=== PATIENT | male | born 1970 | race Caucasian/White ===

== ENCOUNTER 2019-08-04 23:16 | Inpatient (IN) | payer MEDICAID ==
[~2019-08-04 23:16] MED LIST: OXYC5CAP19 PO; PHEN100C23 PO; PROP10TA10 PO
[2019-08-05 03:00] VITALS: BP 128/87
[2019-08-05] MEDS ORDERED: HALOPERIDOL 5 MG TABLET PO PRN (03:00)
[2019-08-05] MEDS ORDERED: PNEUMOCOCCAL VACCINE POLYVALENT 0.5 ML VIAL [PPSV23] IM ONE (04:15)
[2019-08-05] MEDS: LORazepam 2 MG TABLET PO PRN ×2 (04:21→16:11)
[2019-08-05] MEDS ORDERED: DOCUSATE SODIUM 100 MG CAPSULE PO PRN ×2 (07:30→09:15)
[2019-08-05 08:10] LABS: ALANINE AMINOTRANSFERASE 43 U/L (12-78); ALBUMIN 3.2 g/dL (3.4-5.0); ALKALINE PHOSPHATASE 58 U/L (46-116); ANION GAP 9 mmol/L (8-16); ASPARTATE AMINOTRANSFERASE 24 U/L (15-37); BILIRUBIN,TOTAL 0.7 mg/dL (0.1-1.0); CALCIUM, TOTAL 8.9 mg/dL (8.8-10.5); CARBON DIOXIDE 29 mmol/L (22-29); CHLORIDE 104 mmol/L (98-107); CREATININE 0.58 mg/dL (0.60-1.30); GLOMERULAR FILTR. RATE CALC > 60 mL/min (>60); GLUCOSE,RANDOM 94 mg/dL (70-110); POTASSIUM 3.2 mmol/L (3.5-5.1); SODIUM SERUM 142 mmol/L (136-145); TOTAL PROTEIN, SERUM 6.6 g/dL (6.4-8.2); UREA NITROGEN, BLOOD 7 mg/dL (7-18)
[2019-08-05] MEDS: PANTOPRAZOLE SODIUM 40 MG DR TABLET PO SCH (09:03)
[2019-08-05] MEDS: METOPROLOL TARTRATE 25 MG TABLET PO SCH ×2 (09:03→20:09)
[2019-08-05] MEDS: CEPHALEXIN MONOHYDRATE 500 MG CAPSULE PO SCH ×3 (09:03→17:19)
[2019-08-05] MEDS: THIAMINE HCL 100 MG TABLET PO SCH (09:03)
[2019-08-05 09:12] VITALS: BP 125/72
[2019-08-05] MEDS ORDERED: ALBUTEROL SULFATE HFA 90 MCG/PUFF 8 GM INHALER IH PRN (09:15)
[2019-08-05] MEDS ORDERED: CloNIDine HCL 0.1 MG TABLET PO PRN (09:15)
[2019-08-05] MEDS ORDERED: LOPERAMIDE HCL 2 MG CAPSULE PO PRN (09:15)
[2019-08-05] MEDS ORDERED: NICOTINE 14 MG/24 HOUR PATCH TD PRN (09:15)
[2019-08-05] MEDS ORDERED: MAGNESIUM HYDROXIDE SUSPENSION 30 ML UDCUP PO PRN (09:15)
[2019-08-05] MEDS ORDERED: GuaiFENesin/D-METHORPHAN [SUGAR-FREE] 200-20MG/10 ML SYRUP UDCUP PO PRN (09:15)
[2019-08-05] MEDS ORDERED: IBUPROFEN 400 MG TABLET PO PRN (09:15)
[2019-08-05] MEDS ORDERED: MAG HYDROX/AL HYDROX/SIMETH ES 30 ML SUSPENSION UDCUP PO PRN (09:15)
[2019-08-05] MEDS ORDERED: ONDANSETRON HCL 4 MG TABLET PO PRN (09:15)
[2019-08-05] MEDS ORDERED: PETROLATUM,WHITE 28 GM JELLY TP PRN (09:15)
[2019-08-05 09:16] VITALS: BP 125/72
[2019-08-05 16:05] VITALS: BP 111/68
[2019-08-05] MEDS ORDERED: POTASSIUM CHLORIDE 20 MEQ ER TABLET PO ONE (16:15)
[2019-08-05] MEDS: PHENYTOIN SODIUM 100 MG ER CAPSULE PO SCH (17:27)
[2019-08-05] MEDS: OLANZapine 7.5 MG TABLET PO SCH (20:09)
[2019-08-05] MEDS: BENZTROPINE MESYLATE 1 MG TABLET PO SCH (20:09)
[2019-08-06 00:28] VITALS: BP 121/76
[2019-08-06] MEDS: LORazepam 2 MG TABLET PO PRN ×2 (04:05→17:25)
[2019-08-06 07:55] LABS: FREE T4 (FREE THYROXINE) 1.22 ng/dL (0.76-1.46); PHENYTOIN (DILANTIN) 3.3 mcg/mL (10.0-20.0); POTASSIUM 4.2 mmol/L (3.5-5.1)
[2019-08-06] MEDS: PHENYTOIN SODIUM 100 MG ER CAPSULE PO SCH ×2 (08:30→16:27)
[2019-08-06] MEDS: PANTOPRAZOLE SODIUM 40 MG DR TABLET PO SCH (08:30)
[2019-08-06] MEDS: METOPROLOL TARTRATE 25 MG TABLET PO SCH ×2 (08:30→20:10)
[2019-08-06] MEDS: CEPHALEXIN MONOHYDRATE 500 MG CAPSULE PO SCH ×3 (08:30→16:24)
[2019-08-06] MEDS: THIAMINE HCL 100 MG TABLET PO SCH (08:30)
[2019-08-06 09:27] VITALS: BP 128/77
[2019-08-06] MEDS ORDERED: PETROLATUM,WHITE 28 GM JELLY TP PRN (10:45)
[2019-08-06] MEDS ORDERED: GuaiFENesin/D-METHORPHAN [SUGAR-FREE] 200-20MG/10 ML SYRUP UDCUP PO PRN (10:45)
[2019-08-06] MEDS ORDERED: CloNIDine HCL 0.1 MG TABLET PO PRN (10:45)
[2019-08-06] MEDS ORDERED: ONDANSETRON HCL 4 MG TABLET PO PRN (10:45)
[2019-08-06] MEDS ORDERED: DOCUSATE SODIUM 100 MG CAPSULE PO PRN (10:45)
[2019-08-06] MEDS ORDERED: IBUPROFEN 400 MG TABLET PO PRN (10:45)
[2019-08-06] MEDS ORDERED: NICOTINE 14 MG/24 HOUR PATCH TD PRN (10:45)
[2019-08-06] MEDS ORDERED: ALBUTEROL SULFATE HFA 90 MCG/PUFF 8 GM INHALER IH PRN (10:45)
[2019-08-06] MEDS ORDERED: MAG HYDROX/AL HYDROX/SIMETH ES 30 ML SUSPENSION UDCUP PO PRN (10:45)
[2019-08-06] MEDS ORDERED: LOPERAMIDE HCL 2 MG CAPSULE PO PRN (10:45)
[2019-08-06] MEDS ORDERED: MAGNESIUM HYDROXIDE SUSPENSION 30 ML UDCUP PO PRN (10:45)
[2019-08-06 16:17] VITALS: BP 125/76
[2019-08-06 20:10] VITALS: BP 127/89
[2019-08-06] MEDS: BENZTROPINE MESYLATE 1 MG TABLET PO SCH (20:10)
[2019-08-06] MEDS: OLANZapine 7.5 MG TABLET PO SCH (20:11)
[2019-08-06] MEDS: ZOLPIDEM TARTRATE 10 MG TABLET PO PRN (20:57)
[2019-08-07 05:25] VITALS: BP 122/78
[2019-08-07 08:08] VITALS: BP 122/63
[2019-08-07] MEDS: METOPROLOL TARTRATE 25 MG TABLET PO SCH ×2 (08:24→20:09)
[2019-08-07] MEDS: PANTOPRAZOLE SODIUM 40 MG DR TABLET PO SCH (08:24)
[2019-08-07] MEDS: CEPHALEXIN MONOHYDRATE 500 MG CAPSULE PO SCH ×3 (08:24→16:16)
[2019-08-07] MEDS: THIAMINE HCL 100 MG TABLET PO SCH (08:24)
[2019-08-07] MEDS: PHENYTOIN SODIUM 100 MG ER CAPSULE PO SCH ×2 (08:24→16:16)
[2019-08-07] MEDS: LORazepam 2 MG TABLET PO PRN ×2 (11:03→17:18)
[2019-08-07 16:00] VITALS: BP_SYST 101; BP_SYST 96; BP_DIAS 64; BP_DIAS 74
[2019-08-07 20:05] VITALS: BP 126/90
[2019-08-07] MEDS: BENZTROPINE MESYLATE 1 MG TABLET PO SCH (20:09)
[2019-08-07] MEDS: OLANZapine 7.5 MG TABLET PO SCH (20:09)
[2019-08-07] MEDS: ZOLPIDEM TARTRATE 10 MG TABLET PO PRN (21:14)
[2019-08-08 00:49] VITALS: BP 141/79
[2019-08-08] MEDS: PHENYTOIN SODIUM 100 MG ER CAPSULE PO SCH ×2 (08:11→23:22)
[2019-08-08] MEDS: PANTOPRAZOLE SODIUM 40 MG DR TABLET PO SCH (08:12)
[2019-08-08] MEDS: METOPROLOL TARTRATE 25 MG TABLET PO SCH ×2 (08:12→23:22)
[2019-08-08] MEDS: THIAMINE HCL 100 MG TABLET PO SCH (08:12)
[2019-08-08] MEDS: CEPHALEXIN MONOHYDRATE 500 MG CAPSULE PO SCH ×3 (08:13→23:23)
[2019-08-08 08:23] VITALS: BP 121/74
[2019-08-08] MEDS: LORazepam 2 MG TABLET PO PRN (12:30)
[2019-08-08] MEDS ORDERED: PANT40TA25 PO (17:03)
[2019-08-08] MEDS ORDERED: METO25 PO (17:03)
[2019-08-08] MEDS ORDERED: ZOLP-281 PO (17:03)
[2019-08-08] MEDS ORDERED: BENZ1TAB10 PO (17:03)
[2019-08-08] MEDS ORDERED: OLAN7.5T2 PO (17:03)
[2019-08-08] MEDS ORDERED: CEPH-582 PO (17:03)
[2019-08-08] MEDS ORDERED: PHENY100 PO (17:03)
[2019-08-08] MEDS ORDERED: THIA100T67 PO (17:03)
[2019-08-08] MEDS ORDERED: LORA-1001 PO (17:03)
[2019-08-08] MEDS: OLANZapine 7.5 MG TABLET PO SCH (21:00)
[2019-08-08 22:02] VITALS: BP 124/70
[2019-08-08] MEDS: BENZTROPINE MESYLATE 1 MG TABLET PO SCH (23:23)
[2019-08-09 00:54] VITALS: BP 103/68
[2019-08-09] MEDS: METOPROLOL TARTRATE 25 MG TABLET PO SCH ×2 (08:25→21:15)
[2019-08-09] MEDS: THIAMINE HCL 100 MG TABLET PO SCH (08:25)
[2019-08-09] MEDS: CEPHALEXIN MONOHYDRATE 500 MG CAPSULE PO SCH ×3 (08:25→17:06)
[2019-08-09] MEDS: PANTOPRAZOLE SODIUM 40 MG DR TABLET PO SCH (08:25)
[2019-08-09] MEDS: PHENYTOIN SODIUM 100 MG ER CAPSULE PO SCH ×2 (08:25→17:06)
[2019-08-09 08:44] VITALS: BP 124/79
[2019-08-09] MEDS ORDERED: SULFAMETHOX/TRIMETH DS 800-160 MG/TABLET PO SCH ×2 (09:00)
[2019-08-09 16:19] VITALS: BP 100/82
[2019-08-09] MEDS: SULFAMETHOX/TRIMETH DS 800-160 MG/TABLET PO SCH (17:06)
[2019-08-09] MEDS: LORazepam 2 MG TABLET PO PRN (17:18)
[2019-08-09] MEDS: POVIDONE-IODINE 30 GM OINTMENT TP SCH (17:33)
[2019-08-09] MEDS: BENZTROPINE MESYLATE 1 MG TABLET PO SCH (21:15)
[2019-08-09] MEDS: OLANZapine 7.5 MG TABLET PO SCH (21:15)
[2019-08-10 02:49] VITALS: BP 117/85
[2019-08-10 08:07] VITALS: BP 118/70
[2019-08-10] MEDS: THIAMINE HCL 100 MG TABLET PO SCH (08:29)
[2019-08-10] MEDS: CEPHALEXIN MONOHYDRATE 500 MG CAPSULE PO SCH ×2 (08:29→16:30)
[2019-08-10] MEDS: METOPROLOL TARTRATE 25 MG TABLET PO SCH ×2 (08:29→21:42)
[2019-08-10] MEDS: PANTOPRAZOLE SODIUM 40 MG DR TABLET PO SCH (08:29)
[2019-08-10] MEDS: SULFAMETHOX/TRIMETH DS 800-160 MG/TABLET PO SCH ×2 (08:29→16:29)
[2019-08-10] MEDS: POVIDONE-IODINE 30 GM OINTMENT TP SCH (08:30)
[2019-08-10] MEDS: PHENYTOIN SODIUM 100 MG ER CAPSULE PO SCH ×2 (08:30→16:29)
[2019-08-10] MEDS: LORazepam 2 MG TABLET PO PRN (15:56)
[2019-08-10 16:06] VITALS: BP 113/86
[2019-08-10] MEDS: BENZTROPINE MESYLATE 1 MG TABLET PO SCH (21:41)
[2019-08-10] MEDS: OLANZapine 7.5 MG TABLET PO SCH (21:42)
[2019-08-10] MEDS: ZOLPIDEM TARTRATE 10 MG TABLET PO PRN (21:59)
[2019-08-11] MEDS: CEPHALEXIN MONOHYDRATE 500 MG CAPSULE PO SCH ×4 (00:40→23:32)
[2019-08-11 06:32] VITALS: BP 110/76
[2019-08-11 08:28] VITALS: BP 117/74
[2019-08-11] MEDS: THIAMINE HCL 100 MG TABLET PO SCH (08:49)
[2019-08-11] MEDS: PANTOPRAZOLE SODIUM 40 MG DR TABLET PO SCH (08:49)
[2019-08-11] MEDS: METOPROLOL TARTRATE 25 MG TABLET PO SCH ×2 (08:49→20:14)
[2019-08-11] MEDS: SULFAMETHOX/TRIMETH DS 800-160 MG/TABLET PO SCH ×2 (08:49→17:04)
[2019-08-11] MEDS: PHENYTOIN SODIUM 100 MG ER CAPSULE PO SCH ×2 (08:49→17:05)
[2019-08-11] MEDS ORDERED: POVIDONE-IODINE 30 GM OINTMENT TP SCH (09:00)
[2019-08-11] MEDS: POVIDONE-IODINE 30 GM OINTMENT TP SCH (10:25)
[2019-08-11] MEDS: LORazepam 2 MG TABLET PO PRN ×2 (12:00→17:17)
[2019-08-11 16:06] VITALS: BP 108/65
[2019-08-11] MEDS: BENZTROPINE MESYLATE 1 MG TABLET PO SCH (20:14)
[2019-08-11] MEDS: OLANZapine 7.5 MG TABLET PO SCH (20:14)
[2019-08-11] MEDS: ZOLPIDEM TARTRATE 10 MG TABLET PO PRN (22:06)
[2019-08-12 01:13] VITALS: BP 119/91
[2019-08-12] MEDS ORDERED: SULF1TAB42 PO (07:56)
[2019-08-12 08:13] VITALS: BP 133/64
[2019-08-12] MEDS: PANTOPRAZOLE SODIUM 40 MG DR TABLET PO SCH (08:38)
[2019-08-12] MEDS: PHENYTOIN SODIUM 100 MG ER CAPSULE PO SCH (08:38)
[2019-08-12] MEDS: SULFAMETHOX/TRIMETH DS 800-160 MG/TABLET PO SCH (08:38)
[2019-08-12] MEDS: CEPHALEXIN MONOHYDRATE 500 MG CAPSULE PO SCH (08:38)
[2019-08-12] MEDS: METOPROLOL TARTRATE 25 MG TABLET PO SCH (08:38)
[2019-08-12] MEDS: THIAMINE HCL 100 MG TABLET PO SCH (08:38)
[2019-08-12] MEDS: POVIDONE-IODINE 30 GM OINTMENT TP SCH (08:39)
[2019-08-12] MEDS ORDERED: OLAN7.5T9 PO (09:21)
[2019-08-12] MEDS ORDERED: BENZ1TAB10 PO (09:21)
== END 2019-08-12 13:15 | disposition home or self-care (01) | DRG 750 ==
LOC: B2S 08-05 02:40
PROVIDERS: ADMIT Psychiatry & Neurology Child & Adolescent Psychiatry; ATTEND Psychiatry & Neurology Child & Adolescent Psychiatry
DX: F25.0 Schizoaffective disorder, bipolar type (principal); G40.909 Epilepsy, unspecified, not intractable, without status epilepticus; E87.6 Hypokalemia; I10 Essential (primary) hypertension; F15.10 Other stimulant abuse, uncomplicated; Z59.0 Homelessness; Z91.5 Personal history of self-harm; Z88.5 Allergy status to narcotic agent; Z88.8 Allergy status to other drugs, medicaments and biological substances; F11.10 Opioid abuse, uncomplicated
CPT/HCPCS: 84132; 84439; 87081

== ENCOUNTER 2019-08-08 16:13 | Emergency (ER) | payer MEDICAID, OTHER ==
[~2019-08-08] VITALS: Ht 180.3 cm; Wt 81.8 kg
[2019-08-08] MEDS ORDERED: LIDOCAINE/PF 1% 2 ML VIAL IM ONE (17:00)
[2019-08-08] MEDS ORDERED: KETOROLAC TROMETHAMINE 30 MG/ML VIAL IM ONE (17:00)
[2019-08-08] MEDS ORDERED: LIDOCAINE 1%/EPI 1:200,000/PF 10 ML VIAL INJ ONE (17:00)
[2019-08-08] MEDS ORDERED: SULFAMETHOX/TRIMETH DS 800-160 MG/TABLET PO ONE (17:00)
[2019-08-08] MEDS ORDERED: CefTRIAXone SODIUM 1 GM/VIAL IM ONE (17:00)
[2019-08-08] MEDS ORDERED: BENZ1TAB10 PO (17:03)
[2019-08-08] MEDS ORDERED: OLAN7.5T2 PO (17:03)
[2019-08-08] MEDS ORDERED: METO25 PO (17:03)
[2019-08-08] MEDS ORDERED: ZOLP-281 PO (17:03)
[2019-08-08] MEDS ORDERED: PHENY100 PO (17:03)
[2019-08-08] MEDS ORDERED: THIA100T67 PO (17:03)
[2019-08-08] MEDS ORDERED: PANT40TA25 PO (17:03)
[2019-08-08] MEDS ORDERED: CEPH-582 PO (17:03)
[2019-08-08] MEDS ORDERED: LORA-1001 PO (17:03)
[2019-08-08] MEDS ORDERED: IBUPROFEN 400 MG TABLET PO ONE (18:30)
[2019-08-08 18:54] VITALS: BP 129/81
== END 2019-08-08 20:10 | disposition home or self-care (01) ==
LOC: EMS 16:13
DX: L02.414 Cutaneous abscess of left upper limb (principal); L03.114 Cellulitis of left upper limb; F17.210 Nicotine dependence, cigarettes, uncomplicated; I10 Essential (primary) hypertension; F20.9 Schizophrenia, unspecified; G89.29 Other chronic pain; F11.90 Opioid use, unspecified, uncomplicated; Z88.6 Allergy status to analgesic agent; Z88.5 Allergy status to narcotic agent
CPT/HCPCS: 10060; 96372; 99284; J0696; J1885; J3490 ×2

== ENCOUNTER 2020-02-16 09:40 | Inpatient (IN) | payer MEDICAID ==
[~2020-02-16] VITALS: Ht 180.3 cm; Wt 77.3 kg
[~2020-02-16 09:40] MED LIST changes: +BENZ1TAB10 PO; +CITA-144 PO; +CLIN300C3 PO; +LEVO750T68 PO; +METO25 PO; +OLAN7.5T2 PO; -OXYC5CAP19 PO; +PANT-31 PO; -PHEN100C23 PO; +PHENY100 PO; -PROP10TA10 PO
[2020-02-16] MEDS ORDERED: HALOPERIDOL 5 MG TABLET PO PRN (14:30)
[2020-02-16 16:20] VITALS: BP 134/90
[2020-02-16] MEDS: LORazepam 2 MG TABLET PO PRN (17:29)
[2020-02-17 02:21] VITALS: BP 130/81
[2020-02-17] MEDS: ZOLPIDEM TARTRATE 10 MG TABLET PO PRN (02:35)
[2020-02-17] MEDS ORDERED: LOPERAMIDE HCL 2 MG CAPSULE PO PRN (06:45)
[2020-02-17] MEDS ORDERED: ALBUTEROL SULFATE HFA 90 MCG/PUFF 8 GM INHALER IH PRN (06:45)
[2020-02-17] MEDS ORDERED: GuaiFENesin/D-METHORPHAN [SUGAR-FREE] 200-20MG/10 ML SYRUP UDCUP PO PRN (06:45)
[2020-02-17] MEDS ORDERED: CloNIDine HCL 0.1 MG TABLET PO PRN (06:45)
[2020-02-17] MEDS ORDERED: IBUPROFEN 400 MG TABLET PO PRN (06:45)
[2020-02-17] MEDS ORDERED: NICOTINE 14 MG/24 HOUR PATCH TD PRN (06:45)
[2020-02-17] MEDS ORDERED: ACETAMINOPHEN 325 MG TABLET PO PRN (06:45)
[2020-02-17] MEDS ORDERED: MAGNESIUM HYDROXIDE SUSPENSION 30 ML UDCUP PO PRN (06:45)
[2020-02-17] MEDS ORDERED: PETROLATUM,WHITE 28 GM JELLY TP PRN (06:45)
[2020-02-17] MEDS ORDERED: MAG HYDROX/AL HYDROX/SIMETH ES 30 ML SUSPENSION UDCUP PO PRN (06:45)
[2020-02-17] MEDS ORDERED: DOCUSATE SODIUM 100 MG CAPSULE PO PRN (06:45)
[2020-02-17] MEDS ORDERED: ONDANSETRON HCL 4 MG TABLET PO PRN (06:45)
[2020-02-17 07:39] LABS: BASOPHILS % (AUTO) 0.5 % (0.0-2.0); EOSINOPHILS % (AUTO) 2.8 % (1.0-6.0); HEMATOCRIT 40.9 % (41-53); HEMOGLOBIN 13.6 g/dL (13.5-17.5); LYMPHOCYTES # (AUTO) 2.5 K/uL (1.0-4.8); LYMPHOCYTES % (AUTO) 47.4 % (22.0-44.0); MEAN CORPUSCULAR HEMOGLOBIN 28.9 pg (26.0-34.0); MEAN CORPUSCULAR HGB CONC 33.2 G/dL (31.0-37.0); MEAN CORPUSCULAR VOLUME 87 fL (80-100); MONOCYTES # (AUTO) 0.5 K/uL (0.1-1.0); MONOCYTES % (AUTO) 9.4 % (2.0-9.0); NEUTROPHILS # (AUTO) 2.1 K/uL (1.8-7.7); NEUTROPHILS % (AUTO) 39.9 % (40.0-70.0); PLATELET COUNT (AUTO) 218 K/uL (150-450); RED BLOOD CELL COUNT(AUTO) 4.71 MIL/uL (4.50-5.90); RED CELL DISTRIBUTION WIDTH 15.2 % (11.5-14.5)
[2020-02-17 07:57] LABS: HEMOGLOBIN A1C 4.9 % (3.8-5.6)
[2020-02-17 08:05] LABS: ALANINE AMINOTRANSFERASE 63 U/L (12-78); ALKALINE PHOSPHATASE 50 U/L (46-116); ANION GAP 6 mmol/L (8-16); ASPARTATE AMINOTRANSFERASE 38 U/L (15-37); BILIRUBIN,TOTAL 0.3 mg/dL (0.1-1.0); CALCIUM, TOTAL 8.1 mg/dL (8.8-10.5); CARBON DIOXIDE 27 mmol/L (22-29); CHLORIDE 109 mmol/L (98-107); CHOL/HDL RATIO 3.1 (4.2-7.3); CHOLESTEROL 113 mg/dL (131-200); CREATININE 0.49 mg/dL (0.60-1.30); FREE T4 (FREE THYROXINE) 1.17 ng/dL (0.76-1.46); GLOMERULAR FILTR. RATE CALC > 60 mL/min (>60); GLUCOSE,RANDOM 97 mg/dL (70-110); HDL CHOLESTEROL 36 mg/dL (40-60); LDL CHOL (CALC.) 63 mg/dL (0-130); POTASSIUM 3.8 mmol/L (3.5-5.1); SODIUM SERUM 142 mmol/L (136-145); THYROID STIMULATING HORMONE 1.56 uIU/mL (0.36-3.74); TOTAL PROTEIN, SERUM 5.9 g/dL (6.4-8.2); TRIGLYCERIDES 69 mg/dL (15-150); UREA NITROGEN, BLOOD 14 mg/dL (7-18)
[2020-02-17 09:48] VITALS: BP 105/60
[2020-02-17] MEDS: LORazepam 2 MG TABLET PO PRN (10:19)
[2020-02-17] MEDS: CITALOPRAM HYDROBROMIDE 20 MG TABLET PO SCH (13:26)
[2020-02-17] MEDS: BENZTROPINE MESYLATE 1 MG TABLET PO SCH (20:27)
[2020-02-17] MEDS: OLANZapine 7.5 MG TABLET PO SCH (20:27)
[2020-02-18 06:28] VITALS: BP 115/78
[2020-02-18] MEDS: PHENYTOIN SODIUM 100 MG ER CAPSULE PO SCH ×2 (08:48→16:33)
[2020-02-18] MEDS: METOPROLOL TARTRATE 25 MG TABLET PO SCH ×2 (08:48→16:34)
[2020-02-18] MEDS: CITALOPRAM HYDROBROMIDE 20 MG TABLET PO SCH (08:48)
[2020-02-18] MEDS: PANTOPRAZOLE SODIUM 40 MG DR TABLET PO SCH (08:48)
[2020-02-18 10:28] VITALS: BP 114/63
[2020-02-18] MEDS: LORazepam 2 MG TABLET PO PRN ×2 (10:46→17:13)
[2020-02-18 16:23] VITALS: BP 128/73
[2020-02-18] MEDS: OLANZapine 7.5 MG TABLET PO SCH (20:03)
[2020-02-18] MEDS: BENZTROPINE MESYLATE 1 MG TABLET PO SCH (20:03)
[2020-02-19 00:59] VITALS: BP 114/68
[2020-02-19 08:48] VITALS: BP 101/65
[2020-02-19] MEDS: PHENYTOIN SODIUM 100 MG ER CAPSULE PO SCH ×2 (08:51→16:34)
[2020-02-19] MEDS: PANTOPRAZOLE SODIUM 40 MG DR TABLET PO SCH (08:51)
[2020-02-19] MEDS: CITALOPRAM HYDROBROMIDE 20 MG TABLET PO SCH (08:51)
[2020-02-19] MEDS: METOPROLOL TARTRATE 25 MG TABLET PO SCH ×2 (08:58→16:34)
[2020-02-19 11:20] VITALS: BP 126/64
[2020-02-19] MEDS: LORazepam 2 MG TABLET PO PRN (11:21)
[2020-02-19 11:22] VITALS: BP 125/60
[2020-02-19 16:32] VITALS: BP 139/84
[2020-02-19] MEDS: BENZTROPINE MESYLATE 1 MG TABLET PO SCH (20:21)
[2020-02-19] MEDS: ZOLPIDEM TARTRATE 10 MG TABLET PO PRN (20:21)
[2020-02-19] MEDS: OLANZapine 7.5 MG TABLET PO SCH (20:21)
[2020-02-20 01:46] VITALS: BP 115/79
[2020-02-20] MEDS: PANTOPRAZOLE SODIUM 40 MG DR TABLET PO SCH (08:55)
[2020-02-20] MEDS: METOPROLOL TARTRATE 25 MG TABLET PO SCH ×2 (08:55→16:00)
[2020-02-20] MEDS: CITALOPRAM HYDROBROMIDE 20 MG TABLET PO SCH (08:55)
[2020-02-20] MEDS: PHENYTOIN SODIUM 100 MG ER CAPSULE PO SCH ×2 (08:55→17:26)
[2020-02-20 09:14] VITALS: BP 110/65
[2020-02-20 16:12] VITALS: BP 124/70
[2020-02-20] MEDS ORDERED: PHENYTOIN 100 MG/4 ML SUSPENSION UDCUP PO ONE (21:00)
== END 2020-02-20 18:35 | disposition home or self-care (01) | DRG 885 ==
LOC: B2S 14:30
PROVIDERS: ADMIT Psychiatry & Neurology Child & Adolescent Psychiatry; ATTEND Psychiatry & Neurology Child & Adolescent Psychiatry
DX: F25.1 Schizoaffective disorder, depressive type (principal); R45.851 Suicidal ideations; N39.0 Urinary tract infection, site not specified; Z91.5 Personal history of self-harm; Z59.0 Homelessness; F15.10 Other stimulant abuse, uncomplicated; F11.10 Opioid abuse, uncomplicated; I10 Essential (primary) hypertension; K21.9 Gastro-esophageal reflux disease without esophagitis; G40.909 Epilepsy, unspecified, not intractable, without status epilepticus; Z88.8 Allergy status to other drugs, medicaments and biological substances
CPT/HCPCS: 83036; 84439; 84443; 87081

== ENCOUNTER 2021-10-28 22:02 | Inpatient (IN) | payer MEDICAID, OTHER, SELFPAY ==
[~2021-10-28] VITALS: Ht 180.3 cm; Wt 82.6 kg
[~2021-10-28 22:02] MED LIST changes: -BENZ1TAB10 PO; +BENZ1TAB96 PO; -CLIN300C3 PO; -LEVO750T68 PO; -OLAN7.5T2 PO; +OLAN7.5T22 PO
[2021-10-28 23:14] LABS: COVID AG,FIA SOURCE NASOPHARYNGEAL
[2021-10-29 00:26] LABS: BASOPHILS % (AUTO) 0.5 % (0.0-2.0); EOSINOPHILS % (AUTO) 2.5 % (1.0-6.0); HEMATOCRIT 44.7 % (41-53); HEMOGLOBIN 15.1 g/dL (13.5-17.5); LYMPHOCYTES # (AUTO) 2.1 K/uL (1.0-4.8); LYMPHOCYTES % (AUTO) 36.8 % (22.0-44.0); MEAN CORPUSCULAR HEMOGLOBIN 28.8 pg (26.0-34.0); MEAN CORPUSCULAR HGB CONC 33.9 G/dL (31.0-37.0); MEAN CORPUSCULAR VOLUME 85 fL (80-100); MONOCYTES # (AUTO) 0.6 K/uL (0.1-1.0); MONOCYTES % (AUTO) 10.7 % (2.0-9.0); NEUTROPHILS # (AUTO) 2.8 K/uL (1.8-7.7); NEUTROPHILS % (AUTO) 49.5 % (40.0-70.0); PLATELET COUNT (AUTO) 211 K/uL (150-450); RED BLOOD CELL COUNT(AUTO) 5.26 MIL/uL (4.50-5.90); RED CELL DISTRIBUTION WIDTH 15.9 % (11.5-14.5)
[2021-10-29] MEDS ORDERED: QUEtiapine FUMARATE 100 MG TABLET PO PRN (00:30)
[2021-10-29] MEDS ORDERED: ZOLPIDEM TARTRATE 10 MG TABLET PO PRN (00:30)
[2021-10-29 00:38] LABS: ANION GAP 7 mmol/L (8-16); CALCIUM, TOTAL 8.7 mg/dL (8.8-10.5); CARBON DIOXIDE 29 mmol/L (22-29); CHLORIDE 104 mmol/L (98-107); CREATININE 0.79 mg/dL (0.60-1.30); GLOMERULAR FILTR. RATE CALC > 60 mL/min (>60); GLUCOSE,RANDOM 121 mg/dL (70-110); POTASSIUM 3.6 mmol/L (3.5-5.1); SODIUM SERUM 140 mmol/L (136-145); UREA NITROGEN, BLOOD 14 mg/dL (7-18)
[2021-10-29 00:44] LABS: ALANINE AMINOTRANSFERASE 20 U/L (12-78); ALBUMIN 3.6 g/dL (3.4-5.0); ALKALINE PHOSPHATASE 87 U/L (46-116); ASPARTATE AMINOTRANSFERASE 11 U/L (15-37); BILIRUBIN,TOTAL 0.4 mg/dL (0.1-1.0); TOTAL PROTEIN, SERUM 6.9 g/dL (6.4-8.2)
[2021-10-29] MEDS: OLANZapine 5 MG TABLET PO ONE ×2 (00:44→00:46)
[2021-10-29] MEDS: LORazepam 2 MG TABLET PO PRN ×2 (10:24→20:35)
[2021-10-29] MEDS ORDERED: MAGNESIUM HYDROXIDE SUSPENSION 30 ML UDCUP PO PRN (10:30)
[2021-10-29] MEDS ORDERED: PROMETHAZINE HCL 25 MG TABLET PO PRN (10:30)
[2021-10-29] MEDS ORDERED: MAG HYDROX/AL HYDROX/SIMETH ES 30 ML SUSPENSION UDCUP PO PRN (10:30)
[2021-10-29] MEDS ORDERED: TUBERCULIN, PURIFIED PROTEIN DERIVATIVE 5 TU/0.1 ML SYRINGE ID ONE (10:30)
[2021-10-29] MEDS ORDERED: ACETAMINOPHEN 325 MG TABLET PO PRN (10:30)
[2021-10-29] MEDS ORDERED: GuaiFENesin/D-METHORPHAN [SUGAR-FREE] 200-20MG/10 ML SYRUP UDCUP PO PRN (10:30)
[2021-10-29] MEDS ORDERED: OLANZapine 5 MG RAPDIS TABLET PO PRN (10:30)
[2021-10-29] MEDS ORDERED: LOPERAMIDE HCL 2 MG CAPSULE PO PRN (10:30)
[2021-10-29] MEDS ORDERED: HydrOXYzine PAMOATE 50 MG CAPSULE PO PRN (10:30)
[2021-10-29 10:39] VITALS: BP 136/82
[2021-10-29] MEDS: TAMSULOSIN HCL 0.4 MG CAPSULE PO SCH ×2 (11:14→16:42)
[2021-10-29] MEDS: OMEPRAZOLE 20 MG CAPSULE PO SCH (11:14)
[2021-10-29] MEDS: FLUTICASONE PROPIONATE 50 MCG/SPRAY 16 GM NASAL SPRAY NASAL SCH ×2 (11:14→20:07)
[2021-10-29] MEDS: METOPROLOL TARTRATE 50 MG TABLET PO SCH ×2 (11:16→16:36)
[2021-10-29] MEDS: BUPRENORPHINE HCL/NALOXONE HCL 8-2 MG SUBLINGUAL TABLET SL SCH ×2 (11:56→16:42)
[2021-10-29] MEDS: THIAMINE 100 MG TABLET PO SCH (16:43)
[2021-10-29 16:46] VITALS: BP 102/78
[2021-10-29] MEDS ORDERED: BUPRENORPHINE HCL/NALOXONE HCL 8-2 MG SUBLINGUAL TABLET SL SCH (17:00)
[2021-10-29] MEDS: MELATONIN 5 MG TABLET PO SCH (20:06)
[2021-10-29] MEDS: DIVALPROEX SODIUM 500 MG ER TABLET PO SCH (20:08)
[2021-10-29] MEDS: OLANZapine 10 MG RAPDIS TABLET PO SCH (20:09)
[2021-10-29] MEDS ORDERED: OLANZapine 5 MG RAPDIS TABLET PO SCH (21:00)
[2021-10-30 07:50] LABS: HEMOGLOBIN A1C 5.4 % (3.8-5.6)
[2021-10-30 08:08] LABS: CHOL/HDL RATIO 4.9 (4.2-7.3); FREE T4 (FREE THYROXINE) 1.11 ng/dL (0.76-1.46); THYROID STIMULATING HORMONE 2.47 uIU/mL (0.36-3.74)
[2021-10-30] MEDS: FLUTICASONE PROPIONATE 50 MCG/SPRAY 16 GM NASAL SPRAY NASAL SCH ×2 (08:51→21:38)
[2021-10-30] MEDS: OMEGA-3/DHA/EPA/FISH OIL 1,000 MG CAPSULE PO SCH (08:52)
[2021-10-30] MEDS: MULTIVITAMINS WITH MINERALS, THERAPEUTIC TABLET PO SCH (08:52)
[2021-10-30] MEDS: OMEPRAZOLE 20 MG CAPSULE PO SCH (08:52)
[2021-10-30] MEDS: FOLIC ACID 1 MG TABLET PO SCH (08:53)
[2021-10-30] MEDS: CITALOPRAM HYDROBROMIDE 20 MG TABLET PO SCH (08:53)
[2021-10-30] MEDS: TAMSULOSIN HCL 0.4 MG CAPSULE PO SCH ×2 (08:53→16:43)
[2021-10-30] MEDS: METOPROLOL TARTRATE 50 MG TABLET PO SCH ×2 (08:53→16:46)
[2021-10-30] MEDS: THIAMINE 100 MG TABLET PO SCH ×2 (08:53→16:43)
[2021-10-30] MEDS: BUPRENORPHINE HCL/NALOXONE HCL 8-2 MG SUBLINGUAL TABLET SL SCH ×2 (08:53→16:43)
[2021-10-30] MEDS: LORazepam 2 MG TABLET PO PRN ×2 (08:54→19:58)
[2021-10-30 08:56] VITALS: BP 154/82
[2021-10-30] MEDS ORDERED: MELA5TAB40 PO (15:46)
[2021-10-30] MEDS ORDERED: BUPR1TAB32 SL (15:46)
[2021-10-30] MEDS ORDERED: OMEG-108 PO (15:46)
[2021-10-30] MEDS ORDERED: CITA-144 PO (15:46)
[2021-10-30] MEDS ORDERED: DIVA-80 PO (15:46)
[2021-10-30] MEDS ORDERED: OLAN10TA26 PO (15:46)
[2021-10-30 16:05] VITALS: BP 109/84
[2021-10-30 20:15] VITALS: BP 107/80
[2021-10-30] MEDS: OLANZapine 10 MG RAPDIS TABLET PO SCH (21:00)
[2021-10-30] MEDS: DIVALPROEX SODIUM 500 MG ER TABLET PO SCH (21:00)
[2021-10-30] MEDS: MELATONIN 5 MG TABLET PO SCH (21:38)
[2021-10-31] MEDS: FLUTICASONE PROPIONATE 50 MCG/SPRAY 16 GM NASAL SPRAY NASAL SCH (09:00)
[2021-10-31 09:14] VITALS: BP 153/84
[2021-10-31] MEDS: TAMSULOSIN HCL 0.4 MG CAPSULE PO SCH (09:17)
[2021-10-31] MEDS: CITALOPRAM HYDROBROMIDE 20 MG TABLET PO SCH (09:17)
[2021-10-31] MEDS: METOPROLOL TARTRATE 50 MG TABLET PO SCH (09:17)
[2021-10-31] MEDS: MULTIVITAMINS WITH MINERALS, THERAPEUTIC TABLET PO SCH (09:18)
[2021-10-31] MEDS: THIAMINE 100 MG TABLET PO SCH (09:18)
[2021-10-31] MEDS: OMEPRAZOLE 20 MG CAPSULE PO SCH (09:18)
[2021-10-31] MEDS: FOLIC ACID 1 MG TABLET PO SCH (09:18)
[2021-10-31] MEDS: OMEGA-3/DHA/EPA/FISH OIL 1,000 MG CAPSULE PO SCH (09:18)
[2021-10-31] MEDS: BUPRENORPHINE HCL/NALOXONE HCL 8-2 MG SUBLINGUAL TABLET SL SCH (09:19)
[2021-10-31] MEDS ORDERED: METO50 PO (13:04)
[2021-10-31] MEDS ORDERED: FLUT16H NASAL (13:04)
[2021-10-31] MEDS ORDERED: TAMS-13 PO (13:05)
[2021-10-31] MEDS ORDERED: OMEP20 PO (13:05)
== END 2021-10-31 15:39 | disposition home or self-care (01) | DRG 750 ==
LOC: EMS 22:05 → 3EI 10-29 07:04 → 3EC 10-29 09:50
PROVIDERS: ADMIT Psychiatry & Neurology Psychiatry; ATTEND Psychiatry & Neurology Psychiatry
DX: F25.1 Schizoaffective disorder, depressive type (principal); G40.409 Other generalized epilepsy and epileptic syndromes, not intractable, without status epilepticus; R45.851 Suicidal ideations; F11.10 Opioid abuse, uncomplicated; F17.200 Nicotine dependence, unspecified, uncomplicated; Z20.822 Contact with and (suspected) exposure to COVID-19; F41.9 Anxiety disorder, unspecified; F60.0 Paranoid personality disorder; I10 Essential (primary) hypertension; Z55.9 Problems related to education and literacy, unspecified; Z88.6 Allergy status to analgesic agent; Z59.00 Homelessness unspecified; Z63.9 Problem related to primary support group, unspecified; Z65.3 Problems related to other legal circumstances; Z87.440 Personal history of urinary (tract) infections; Z88.5 Allergy status to narcotic agent; Z91.19 Patient's noncompliance with other medical treatment and regimen
CPT/HCPCS: 80053; 80061; 83036; 84439; 84443; 85025; 86592; 99285; G0480; Q9967